=== PATIENT | female | born 1985 | race Caucasian/White ===

== ENCOUNTER 2024-09-13 00:30 | Emergency (ER) | payer MEDICAID, SELFPAY ==
[2024-09-13 00:55] VITALS: BP 110/72; PULSE 78; RESP 16; TEMP 36.5; O2SAT 96
[2024-09-13 01:19] LABS: UPreg QC Valid YES; Urine Pregnancy NEGATIVE (NEGATIVE)
--- NOTE | 2024-09-13 01:33 | PC.NURSE ---
pt warp changer into hospital attire with security drug paraphernalia disposed, pt given sandwich, drink, belongings in ronn port.
[2024-09-13 01:38] LABS: Amphetamine Screen Urine Not Detected (Not Detect); Barbiturates, Urine Not Detected (Not Detect); Benzodiazepines Screen Urine POSITIVE (Not Detect); Buprenorphine Scr Positive (Not Detect); Cannabinoid Screen Urine POSITIVE (Not Detect); Cocaine Screen Urine POSITIVE (Not Detect); Fentanyl, urine POSITIVE (Not Detect); Methadone Screen, Urine Positive (Not Detect); Opiate Screen Urine POSITIVE (Not Detect); Oxycodone Screen Urine Not Detected (Not Detect); Phencyclidine Screen Urine Not Detected (Not Detect)
--- NOTE | 2024-09-13 02:53 | ECG_ITS ---
Test Reason : substance abuse Blood Pressure : */* mmHG Vent. Rate : 69 BPM Atrial Rate : 69 BPM P-R Int : 164 ms QRS Dur : 90 ms QT Int : 436 ms P-R-T Axes : 56 55 35 degrees QTcB Int : 467 ms Normal sinus rhythm Nonspecific T wave abnormality Borderline ECG No previous ECGs available Referred By: Alberto Saravia Electronically Signed By: KELSY HURST
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
[2024-09-13 03:12] LABS: MANUAL DIFF FLAG NO
[2024-09-13 03:13] LABS: Basophils Percent Auto 0.5 % (0-2); Eosinophils Absolute Auto 0.1 X10*3/uL (0.0-0.4); Eosinophils Percent Auto 2.8 % (0-4); Hematocrit 31.9 % (37.0-47.0); Hemoglobin 11.3 g/dl (12.0-16.0); Imm Gran Abs Auto 0.01 X10*3/uL (0.00-0.03); Imm Gran Pct Auto 0.3 % (0.0-0.4); Lymphocytes Absolute Auto 1.2 X10*3/uL (1.2-4.9); Lymphocytes Percent Auto 31.2 % (20-40); Mean Corpuscular HGB Conc 35.4 g/dl (31.0-35.0); Mean Corpuscular Hemoglobin 29.3 pg (27.0-33.0); Mean Corpuscular Volume 82.6 fL (80.0-98.0); Mean Platelet Volume 9.5 fL (9.4-12.3); Monocytes Absolute Auto 0.5 X10*3/uL (0.1-1.2); Monocytes Percent Auto 13.4 % (2-11); Neutrophils Absolute Auto 2.1 x10*3/uL (2.0-8.3); Neutrophils Percent Auto 51.8 % (45-73); Platelet Count 200 X10*3/uL (160-400); Red Blood Count 3.86 X10*6/uL (4.20-5.50); Red Cell Distribution Width 13.6 % (11.0-16.0)
--- NOTE | 2024-09-13 03:18 | PC.NURSE ---
provider into see pt., EKG completed and Labs collected.
[2024-09-13 03:29] LABS: Alanine Aminotransferase 30 U/L (0-31); Alkaline Phosphatase 58 U/L (39-117); Anion Gap 11 (12-20); Aspartate Amino Transferase 60 U/L (5-31); Bilirubin Total 0.7 mg/dL (0.0-1.0); Blood Urea Nitrogen 12 mg/dL (9-16); Calcium 8.3 mg/dL (8.4-10.2); Carbon Dioxide 23 mmol/L (22-29); Chloride 106 mmol/L (96-108); Creatinine Clr Calc Pharmacy 117.8; Estimated Glomerular Filt Rate > 60; Ethanol < 10 mg/dL; Glucose Random 106 mg/dL (60-115); Potassium 3.1 mmol/L (3.3-5.1); Sodium 137 mmol/L (135-145); Total Protein 7.3 g/dL (6.5-8.0)
[2024-09-13 03:33] LABS: Acetaminophen LAB < 3 mcg/mL (<30); Salicylate < 5.0 mg/dL (15-30)
[2024-09-13] MEDS: Potassium Chloride ER 20 MEQ TAB.ER.PRT 40 MEQ PO (04:08)
--- NOTE | 2024-09-13 04:09 | PC.NURSE ---
pt medicated per mar.
--- NOTE | 2024-09-13 04:15 | PC.NURSE ---
pt medicated per mar.
[2024-09-13 05:10] VITALS: BP 99/50; PULSE 78; RESP 16; TEMP 36.6; O2SAT 97
--- NOTE | 2024-09-13 05:56 | PC.NURSE ---
pt sleeping at this time.
--- NOTE | 2024-09-13 10:18 | PC.NURSE ---
Attempted to verify Methadone dose at [facility]. [phone] No answer at this time, will retry.
[2024-09-13 10:34] VITALS: BP 130/68; PULSE 78; RESP 18; O2SAT 92
--- NOTE | 2024-09-13 10:34 | PC.NURSE ---
Assumed care of pt at 0700. Pt resting in bed quietly, a/ox3, respirations even and unlabored, no increased wob/sob noted. Denies pain/cp/sob/n/v/d at this time. Ionna from recovery at bedside to assess patient- referrals made to detox for patient. Multiple RNs attempted to verify pt methadone dose, no response from [facility]. Call lambert within reach, all needs met at this time.
--- NOTE | 2024-09-13 11:26 | MHC.RECOVRN ---
Met with Krystal to discuss recent recurrence on substances. Pt is ATS seeking and agreed on referrals to be sent on her behalf. Referrals sent and pt was accepted at [facility]. Pt is to call [phone] for her intake.
[2024-09-13] MEDS: LORazepam 0.5 MG TABLET PO (12:54)
[2024-09-13] MEDS: methADONE HCl 20 MG/2 ML ORAL.CONC 40 MG PO (12:54)
[2024-09-13 13:22] VITALS: BP 130/68; PULSE 78; RESP 18; TEMP 36.7; O2SAT 96
== END 2024-09-13 13:40 | disposition home or self-care (01) ==
PROVIDERS: Physician Assistant; Emergency Provider Emergency Medicine
DX: F19.10 Other psychoactive substance abuse, uncomplicated (principal)
CPT/HCPCS: 36415; 80053; 80143; 80179; 80307; 81025; 85025; 93005; 99284; 99285; S9485

== ENCOUNTER → 2024-09-13 02:53 | Outpatient (BNV) | payer MEDICAID, SELFPAY | PROVIDERS: Emergency Provider Emergency Medicine; Visit Provider Internal Medicine | DX: F19.10 Other psychoactive substance abuse, uncomplicated (principal) | CPT/HCPCS: 93010 ==